=== PATIENT | male | born 1980 | race Caucasian/White ===

== ENCOUNTER 2018-05-27 15:10 | Emergency (ER) | payer OTHER ==
[2018-05-27 15:50] LABS: ADD MAN DIFF? NO
[2018-05-27 15:54] LABS: BASOPHILS % 0.6 % (0.0-2.0); EOSINOPHILS # 0.2 10^3/ul (0.0-0.5); EOSINOPHILS % 2.8 % (0.0-7.0); HEMATOCRIT 48.9 % (42.0-52.0); HEMOGLOBIN 16.8 g/dl (14.0-18.0); LYMPHOCYTES % 30.4 % (15.0-51.0); MEAN CORPUSCULAR HEMOGLOBIN 30.7 pg (29.0-33.0); MEAN CORPUSCULAR HGB CONC 34.4 g/dl (32.0-37.0); MEAN CORPUSCULAR VOLUME 89.4 fl (82.0-101.0); MEAN PLATELET VOLUME 9.2 fl (7.4-10.4); MONOCYTE # 0.4 10^3/ul (0.3-0.9); MONOCYTES % 5.7 % (0.0-11.0); NEUTROPHIL # 3.9 10^3/ul (1.6-7.5); NEUTROPHILS % 60.2 % (39.0-77.0); PLATELET COUNT 245 10^3/UL (140-415); RED BLOOD COUNT 5.47 10^6/ul (4.70-6.10); RED CELL DISTRIBUTION WIDTH 11.8 % (11.5-14.5)
[2018-05-27 15:54] LABS: WHITE BLOOD COUNT 6.5 10^3/ul (4.8-10.8)
[2018-05-27 16:20] LABS: ANION GAP 10 (5-13); BLOOD UREA NITROGEN 18 mg/dl (7-20); CALCIUM 9.4 mg/dl (8.4-10.2); CARBON DIOXIDE 26 mmol/L (21-31); CHLORIDE 103 mmol/L (97-110); CREATININE 1.04 mg/dl (0.61-1.24); Estimated GFR > 60 mL/min (>60); GLUCOSE 140 mg/dl (70-220); POTASSIUM 4.3 mmol/L (3.5-5.1); SODIUM 139 mmol/L (135-144)
== END 2018-05-27 17:17 | disposition home or self-care (01) ==
LOC: E/R 15:10
DX: R00.2 Palpitations (principal); R06.02 Shortness of breath; Z87.891 Personal history of nicotine dependence
CPT/HCPCS: 36415; 71045; 80048; 85025; 93005; 99285-25